=== PATIENT | female | born 1965 | race Caucasian/White ===

== ENCOUNTER 2018-09-20 22:03 | Emergency (ER) | payer OTHER ==
[2018-09-20] MEDS ORDERED: predniSONE 20 MG TAB PO ONE (22:25)
[2018-09-20] MEDS ORDERED: IPRATROPIUM/ALBUTEROL 3 ML DEYVIAL IH ONE (22:26)
--- NOTE | 2018-09-20 22:27 | EDPHY ---
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 States she realized that she had eaten this and then quickly took 50 mg of Benadryl and Zantac. She also did 1 inhaler treatment of albuterol. She denies any tongue swelling or throat tightness but did report mild tightness in her chest. Denies any nausea or vomiting or hives. This that once before she ingested beef and need epinephrine. She has never been hospitalized for allergic reaction. She did not use her EpiPen today. ROS As detailed in HPI Smoking Status: Heavy smoker Physical Exam: General: Alert and oriented. Nontoxic appearing. No acute distress HEENT: Pupils PERRLA. No oral lesions. No stridor Lungs: Clear to auscultation with no wheezing or increased work of breathing Cardiopulmonary: Regular rate and rhythm. No lower extremity edema Skin: [place] warm and dry. No lesions. Muscle skeletal: Moving all 4 extremities. Equal strength in upper extremities and lower extremities. Ambulatory. Constitutional: Initial Vital Signs Temperature (C) 36.8 C 09/20/18 22:10 Heart Rate 67 09/20/18 22:10 Respiratory Rate 16 09/20/18 22:10 Blood Pressure 161/71 H 09/20/18 22:10 O2 Sat (%) 99 09/20/18 22:10 O2 Delivery Mode Room Air Allergies/Adverse Reactions: acai Allergy (Verified 09/20/18 22:08) Beef Containing Products [beef] Allergy (Verified 09/20/18 22:08) erythromycin base Allergy (Verified 09/20/18 22:08) Home Medications: Medication Instructions Recorded Albuterol 09/20/18 Benadryl 09/20/18 Cetirizine HCl [Zyrtec] 09/20/18 Zantac 09/20/18 predniSONE 60 mg PO DAILY #9 tab 09/20/18 Medical Decision Making ED Course/Re-evaluation: A 53-year-old female here with allergic reaction to ingested beef. She does report some mild chest tightness but there is no wheezing or stridor, hives or this is of angioedema or anaphylaxis. She had already taken Pepcid and Benadryl just prior to arrival in the emergency room she was given prednisone and observed here. Addition she was given albuterol treatment. She is re- evaluated after an hour and half and felt improved in the tightness in her chest resolved. - Data Points Medications Given: Discontinued Medications Albuterol/Ipratropium (Duoneb) 3 ml IH EDNOW ONE Stop: 09/20/18 22:27 Last Admin: 09/20/18 22:29 Dose: 3 ml Prednisone (Prednisone) 60 mg PO ONCE ONE Stop: 09/20/18 22:26 Last Admin: 09/20/18 22:28 Dose: 60 mg Departure - Departure Disposition: Home, Routine, Self-Care Clinical Impression: Allergic reaction Condition: Good Instructions: Food Allergy (ED) Referrals: Ilana Talbert PA [Primary Care Provider] - As per Instructions Prescriptions: predniSONE 60 mg PO DAILY #9 tab
[2018-09-20 23:57] VITALS: BP 139/77
== END 2018-09-20 23:56 | disposition home or self-care (01) ==
DX: T63.441A Toxic effect of venom of bees, accidental (unintentional), initial encounter (principal)
CPT/HCPCS: J7512